=== PATIENT | male | born 1965 | race Caucasian/White ===

== ENCOUNTER 2017-04-25 11:50 | Inpatient (IN) | payer MEDICARE, MEDICAID ==
[~2017-04-25] VITALS: Ht 175.3 cm; Wt 79.4 kg
--- NOTE | 2017-04-25 12:08 | NUR ---
PT IS IN ROOM #2B. DR CASTELLANO EVALUATED THE PT.
[2017-04-25] MEDS ORDERED: HYDROMORPHONE 1 MG/1 ML DISP.SYRIN IV ONE ×2 (12:15→13:45)
[2017-04-25] MEDS ORDERED: ONDANSETRON 4 MG/2 ML VIAL IV ONE (12:15)
[2017-04-25] MEDS ORDERED: HYDROMORPHONE 2 MG/1 ML DISP.SYRIN ONE ×2 (12:20→13:39)
[2017-04-25] MEDS ORDERED: ONDANSETRON 4 MG/2 ML VIAL ONE (12:22)
--- NOTE | 2017-04-25 12:35 | NUR ---
TEXTED DR. NAYAK FOR MRI APPROVAL.
--- NOTE | 2017-04-25 12:40 | NUR ---
Received telephone call from Gerardo ) from [facility] who stated the MRI has been approved and pt may be transported to [facility] [place] as soon as possible.
--- NOTE | 2017-04-25 12:42 | NUR ---
Called [facility] for BLS transport to [facility] for MRI and return to [facility] post MRI, dispatcher stated she will call back with hal.
[2017-04-25] MEDS ORDERED: ONDANSETRON 4 MG/2 ML VIAL IV PRN (12:45)
[2017-04-25] MEDS ORDERED: MAGNESIUM HYDROXIDE 30 ML LIQUID UDC PO PRN (12:45)
[2017-04-25] MEDS ORDERED: Z GUARD REMEDY PASTE 57 GM TUBE TOP PRN (12:45)
[2017-04-25] MEDS ORDERED: ACETAMINOPHEN 325 MG TABLET PO PRN (12:45)
[2017-04-25] MEDS ORDERED: HYDROCODONE/APAP 5-325MG TABLET PO PRN (12:45)
[2017-04-25 12:46] LABS: CREATININE 1.1 mg/dL (0.6-1.3); POTASSIUM 4.5 mmol/L (3.5-5.1)
--- NOTE | 2017-04-25 12:49 | NUR ---
MRI APRROVED, SPOKE TO NURSE ASHLEY.
[2017-04-25 12:51] LABS: BILIRUBIN,DIRECT 0.1 mg/dL (0.0-0.2); BILIRUBIN,TOTAL 0.2 mg/dL (0.2-1.0)
[2017-04-25 13:02] LABS: BASOPHILS # (AUTO) 0.1 K/uL (0.0-8.0); BASOPHILS % (AUTO) 1.1 % (0.0-2.0); EOSINOPHILS # (AUTO) 0.2 K/uL (0.0-0.7); EOSINOPHILS % (AUTO) 2.7 % (0.0-7.0); HEMATOCRIT 42.3 % (36.7-47.1); LYMPHOCYTES # (AUTO) 3.3 K/uL (20.0-40.0); LYMPHOCYTES % (AUTO) 47.9 % (20.5-51.5); MEAN CORPUSCULAR HEMOGLOBIN 31.3 uug (23.8-33.4); MEAN CORPUSCULAR HGB CONC 33 g/dL (32.5-36.3); MEAN CORPUSCULAR VOLUME 94.3 fL (73.0-96.2); MONOCYTES # (AUTO) 0.6 K/uL (2.0-10.0); NEUTROPHILS # (AUTO) 2.7 K/uL (1.8-8.9); NEUTROPHILS % (AUTO) 39.3 % (38.5-71.5); PLATELET COUNT (AUTO) 196 K/uL (152-348); RED BLOOD CELL COUNT(AUTO) 4.49 MIL/uL (4.06-5.63); WHITE BLOOD COUNT (AUTO) 6.8 K/uL (3.6-10.2)
[2017-04-25] MEDS ORDERED: SOMA6VIA SQ (13:13)
[2017-04-25] MEDS ORDERED: CARI350T PO (13:13)
[2017-04-25] MEDS ORDERED: DOLU50TA PO (13:13)
[2017-04-25] MEDS ORDERED: LEVO1CAP2 PO (13:13)
[2017-04-25] MEDS ORDERED: ONDA4TAB10 PO (13:13)
[2017-04-25] MEDS ORDERED: TEST200V3 IM (13:13)
[2017-04-25] MEDS ORDERED: BUPR-51 PO (13:13)
[2017-04-25] MEDS ORDERED: CYAN10009 PO (13:13)
[2017-04-25] MEDS ORDERED: ALBU8.5H8 IH (13:13)
[2017-04-25] MEDS ORDERED: SENN-167 PO (13:13)
[2017-04-25] MEDS ORDERED: EMTR1TAB13 PO (13:13)
[2017-04-25] MEDS ORDERED: OXYC30TA2 PO (13:13)
[2017-04-25] MEDS ORDERED: ALPR1TAB7 PO (13:13)
[2017-04-25] MEDS ORDERED: VALA500T PO (13:13)
[2017-04-25] MEDS ORDERED: ERGO500040 PO (13:13)
[2017-04-25] MEDS ORDERED: DULO60CA45 PO (13:13)
[2017-04-25] MEDS ORDERED: MELO-105 PO (13:13)
[2017-04-25] MEDS ORDERED: ATOR20TA PO (13:13)
[2017-04-25] MEDS ORDERED: HYDR-500 PO (13:13)
[2017-04-25] MEDS ORDERED: LISI10TA5 PO (13:13)
[2017-04-25] MEDS ORDERED: PREG200C PO (13:13)
[2017-04-25] MEDS ORDERED: SULF1TAB48 PO (13:13)
[2017-04-25] MEDS ORDERED: TRAZ-147 PO (13:13)
[2017-04-25] MEDS ORDERED: ACET-2154 PO (13:13)
[2017-04-25] MEDS ORDERED: FINA5TAB3 PO (13:13)
[2017-04-25] MEDS ORDERED: TAMS0.4C34 PO (13:13)
[2017-04-25] MEDS ORDERED: VILA40TA PO (13:13)
[2017-04-25] MEDS ORDERED: CLON1TAB4 PO (13:13)
--- NOTE | 2017-04-25 13:31 | NUR ---
PT IS RESTING IN BED. NO S/S OF ACUTE DISTRESS AT THIS TIME.
--- NOTE | 2017-04-25 13:31 | NUR ---
[facility] WAS CALLED TO BRING [facility]. [facility] IS 2HRS.
--- NOTE | 2017-04-25 13:32 | NUR ---
REPORT WA GIVEN TO RN M/S. PT WAS TRANSFERED TO ROOM #223.
--- NOTE | 2017-04-25 13:55 | NUR ---
PT ARRIVED VIA GURNEY. PT IS CALM, COOPERATIVE, STABLE. ORIENTED TO UNIT. IV INTACT. CONTINUE TO MONITOR PT.
[2017-04-25 14:30] VITALS: BP 123/82
[2017-04-25] MEDS ORDERED: hydrOXYzine HCL 25 MG TABLET PO PRN (15:30)
[2017-04-25] MEDS ORDERED: MELOXICAM 7.5 MG TABLET PO PRN (15:30)
[2017-04-25] MEDS ORDERED: CARISOPRODOL 350 MG TABLET PO PRN (15:30)
[2017-04-25] MEDS ORDERED: SENNOSIDES 1 TABLET PO PRN (15:30)
[2017-04-25] MEDS ORDERED: ALBUTEROL SULFATE 8 GM HFA.AER.AD IH PRN (15:30)
[2017-04-25] MEDS ORDERED: ONDANSETRON HCL 4 MG TABLET PO PRN ×2 (15:30→18:00)
[2017-04-25] MEDS ORDERED: ALBUTEROL SULFATE 2.5 MG/3 ML NEBU NEB PRN (16:00)
[2017-04-25] MEDS ORDERED: ALPRAZOLAM 0.5 MG TABLET PO PRN (16:30)
[2017-04-25] MEDS: OXYCODONE HCL 5 MG TABLET PO SCH (16:56)
[2017-04-25] MEDS ORDERED: buPROPion XL 150 MG TAB.SR.24H PO SCH (17:00)
[2017-04-25] MEDS: CLONAZEPAM 1 MG TABLET PO PRN (17:38)
[2017-04-25] MEDS: buPROPion SR 150 MG TABLET.SA PO SCH (17:38)
--- NOTE | 2017-04-25 18:34 | NUR ---
PT LEAVES UNIT TO SMOKE. PT IS EXPLAINED THE RISKS OF LEAVING THE UNIT. PT UNDERSTANDS THE RISKS OF LEAVING THE UNIT, HE STILL REFUSES TO STAY ON THE UNIT AND LEAVES FOR A SMOKE.
--- NOTE | 2017-04-25 18:44 | NUR ---
PT ARRIVED ON THE UNIT FROM HIS "WALK" SMOKE BREAK. PT SHOWS NO SIGNS OF RESPIRATORY DISTRESS. PT STABLE AT THIS TIME.
[2017-04-25] MEDS: VALACYCLOVIR HCL 500 MG TABLET PO SCH (18:51)
--- NOTE | 2017-04-25 19:30 | NUR ---
Pt in room laying in bed alert awake in no acute distress. States pain to neck is still present and routine Oxycodone is ineffective. Pt is requesting Dilaudid and if not received, he would rather go back to his assisted living. Offered prn [place], Mobic, and Soma at this time. Pt Verbalized understanding but states he only gets Soma at nite and has a bad reaction to Mobic. V/S are WNL. Dr Murillo made aware of pt's concerns. Continue to monitor. Call light placed within reach.
--- NOTE | 2017-04-25 20:00 | NUR ---
Dr Murillo stated pt may leave if he wishes. Pt made aware of no Dilaudid ordered at this time. Stated he would like his routine bedtime medications and to be discharged tomorrow. MD is aware. Continue to monitor.
[2017-04-25 20:28] VITALS: BP 106/63
[2017-04-25] MEDS: SULFAMETH/TRIMETH 800/160 MG TABLET PO SCH (20:48)
[2017-04-25] MEDS: LISINOPRIL 10 MG TABLET PO SCH (20:49)
[2017-04-25] MEDS ORDERED: PREGABALIN 100 MG CAPSULE PO SCH (21:00)
[2017-04-25] MEDS ORDERED: TRAZODONE 100 MG TABLET PO SCH (21:00)
[2017-04-25] MEDS ORDERED: TAMSULOSIN HCL 0.4 MG CAP.SR.24H PO SCH (21:00)
[2017-04-25] MEDS ORDERED: ATORVASTATIN 20 MG TABLET PO SCH (21:00)
[2017-04-26] MEDS: OXYCODONE HCL 5 MG TABLET PO SCH ×3 (05:15→12:54)
--- NOTE | 2017-04-26 06:00 | NUR ---
PT ALERT AWAKE IN NO ACUTE DISTRESS. ABLE TO RECEIVE ROUTINE OXYIR PAIN MEDICATION. NO NEW ORDERS AT THIS TIME. PT STATED HE WILL GO FOR A SMOKE BREAK. V/S ARE WNL. CONTINUE TO MONITOR. REFUSED TO WEAR NECK BRACE.
[2017-04-26 06:21] VITALS: BP 115/62
[2017-04-26 06:36] LABS: BASOPHILS # (AUTO) 0.1 K/uL (0.0-8.0); BASOPHILS % (AUTO) 0.8 % (0.0-2.0); EOSINOPHILS # (AUTO) 0.2 K/uL (0.0-0.7); EOSINOPHILS % (AUTO) 1.9 % (0.0-7.0); HEMOGLOBIN 15.9 g/dL (12.5-16.3); LYMPHOCYTES # (AUTO) 4.4 K/uL (20.0-40.0); LYMPHOCYTES % (AUTO) 47.5 % (20.5-51.5); MEAN CORPUSCULAR HEMOGLOBIN 31.5 uug (23.8-33.4); MEAN CORPUSCULAR HGB CONC 33 g/dL (32.5-36.3); MEAN CORPUSCULAR VOLUME 94.8 fL (73.0-96.2); MONOCYTES # (AUTO) 0.8 K/uL (2.0-10.0); MONOCYTES % (AUTO) 8.4 % (0.0-11.0); NEUTROPHILS # (AUTO) 3.8 K/uL (1.8-8.9); NEUTROPHILS % (AUTO) 41.4 % (38.5-71.5); PLATELET COUNT (AUTO) 225 K/uL (152-348); RED BLOOD CELL COUNT(AUTO) 5.05 MIL/uL (4.06-5.63)
[2017-04-26 06:51] LABS: CREATININE 1.1 mg/dL (0.6-1.3); MAGNESIUM 2.1 mg/dL (1.8-2.4); PHOSPHOROUS 3.1 mg/dL (2.5-4.9); POTASSIUM 4.7 mmol/L (3.5-5.1)
[2017-04-26 06:58] LABS: WHITE BLOOD COUNT (AUTO) 9.3 K/uL (3.6-10.2)
[2017-04-26] MEDS: buPROPion SR 150 MG TABLET.SA PO SCH (08:07)
[2017-04-26] MEDS: SULFAMETH/TRIMETH 800/160 MG TABLET PO SCH (08:07)
[2017-04-26] MEDS: VALACYCLOVIR HCL 500 MG TABLET PO SCH (08:07)
[2017-04-26] MEDS: LISINOPRIL 10 MG TABLET PO SCH (08:07)
--- NOTE | 2017-04-26 08:30 | NUR ---
PT LEFT TO GO SMOKE A CIGARETTE OUTSIDE. PT WAS ADVISED NOT TO DUE TO SAFETY AND RISKS. PT UNDERSTANDS THE RISKS INVOLVED IN LEAVING THE UNIT. PT REFUSED TO STAY ON THE UNIT. PT ALSO REFUSES TO WEAR NECK BRACE.
--- NOTE | 2017-04-26 08:41 | NUR ---
PT ARRIVED ON THE UNIT SMELLING OF CIGARETTE SMOKE. PT IS STABLE, NO SIGNS OF RESPIRATORY DISTRESS AT THIS TIME.
[2017-04-26] MEDS: CLONAZEPAM 1 MG TABLET PO PRN (08:56)
[2017-04-26] MEDS ORDERED: TIVICAY 50MG PO SCH (09:00)
[2017-04-26] MEDS ORDERED: FINASTERIDE 5 MG TABLET PO SCH (09:00)
[2017-04-26] MEDS ORDERED: DULOXETINE 60 MG CAPSULE.DR PO SCH (09:00)
[2017-04-26] MEDS ORDERED: CYANOCOBALAMIN 1,000 MCG TABLET PO SCH (09:00)
[2017-04-26] MEDS ORDERED: Medication Not On Formulary EA (Emtricitabine/Tenofov Alafenam (Descovy 200-25 mg Tablet PO SCH (09:00)
--- NOTE | 2017-04-26 11:06 | NUR ---
THIS IS THE THIRD TIME TODAY THAT PT LEAVES THE UNIT. PT IS EXPLAINED THE RISKS OF LEAVING THE UNIT. PT UNDERSTANDS THE RISKS AND CONTINUES TO LEAVE THE UNIT AGAINST ADVICE.
[2017-04-26 11:25] VITALS: BP 100/56
[2017-04-26 14:36] VITALS: BP 123/81
--- NOTE | 2017-04-26 14:36 | NUR ---
PT DISCHARGE VIA TAXI TO [facility]. PT DISCHARGE WITH ALL BELONGINGS, EXIT-CARE PACKET, AND VALUABLES. IV SITES REMOVED, PT STABLE TO DISCHARGE, NO SIGNS OF RESPIRATORY DISTRESS. NOTIFIED.
[2017-04-27] MEDS ORDERED: SOMATROPIN SQ SCH (09:00)
[2017-04-29] MEDS ORDERED: ERGOCALCIFEROL 50,000 UNIT CAPSULE PO SCH (09:00)
== END 2017-04-26 14:34 | DRG 103 ==
LOC: ER 11:50 → MED 13:44
PROVIDERS: ADMIT Internal Medicine; ATTEND Internal Medicine
DX: F07.81 Postconcussional syndrome (principal); B00.9 Herpesviral infection, unspecified; G44.309 Post-traumatic headache, unspecified, not intractable; Z90.81 Acquired absence of spleen; E78.5 Hyperlipidemia, unspecified; Y04.2XXA Assault by strike against or bumped into by another person, initial encounter; G89.29 Other chronic pain; M79.7 Fibromyalgia; Z86.19 Personal history of other infectious and parasitic diseases; J45.20 Mild intermittent asthma, uncomplicated; Y92.129 Unspecified place in nursing home as the place of occurrence of the external cause; Z79.899 Other long term (current) drug therapy; Z98.1 Arthrodesis status; I10 Essential (primary) hypertension; F41.8 Other specified anxiety disorders; M54.5 Low back pain; M54.2 Cervicalgia; F41.9 Anxiety disorder, unspecified
CPT/HCPCS: 36415; 70030-TC; 71045; 72141; 83735; 84100; 85025; 85730; 93005; A4663; J1170; J2405